=== PATIENT | female | born 1950 | race Caucasian/White ===

== ENCOUNTER → 2017-04-17 | Outpatient (CLI) | payer OTHER ==
[~2017-04-17] MED LIST: ACIPHEX20 MG PO; ALAVERT10 MG PO; ALENDRONATE SOD70 M1 PO; ALLERCLEAR10 MG PO; ASPIRIN81 M2 PO; BYSTOLIC10 MG PO; CALCIUM + D PO; CHANTIX PO; COMBIVENT INH14.7 GM INH; COMBIVENT U/D3 ML INH; COREG6.25 MG PO; DULERA 200 MCG/13 GM IH; ELIQUIS5 MG PO; EVISTA60 M1 PO; EVISTA60 MG PO; EYE DROP TEARS15 ML OP; K-DUR20 ME2 PO; LATANOPROST2.5 ML OP; LEVAQUIN750 M1 PO; NEXIUM PO; OMEPRAZOLE40 M1 PO; OYSTER CALCIUM500 MG PO; PAROXETINE HCL20 M1 PO; PAXIL PO; PREVACID PO; PRILOSEC20 MG PO; VITAL-D RX TABL1 TAB PO; VITAMIN D 22000 UNIT PO
--- NOTE | ~2017-04-17 | MY29 ---
[facility] A Service of [facility] & [facility] RADIOLOGY TEXT RESULTS PATIENT: LOPEZ CONDON LOCATION: [facility] : 54 UNIT #: [id number] AGE: [address]: VINNIE HURT MD SEX: F ORDER DR: [id number] [facility] [address] [place], [place] [address] [id number] O MR#: [id number] Acc #: [id number] NAME: LOPEZ CONDON : 1950 SEX: F STUDY DATE/TIME: 04/17/2017 10:08 UNIT: [facility] ROOM: STUDY DESCRIPTION: MY RAJWINDER SCREENING W/ CAD BILAT Attending Physician: Vinnie Hurt M.D. Referring Physician: Vinnie Hurt M.D. Ordering Physician: Vinnie Hurt M.D. Primary Care Physician: Vinnie Hurt M.D. MEDICAL IMAGING REPORT This report is preliminary unless electronic signature is present EXAM Digital screening mammograms 04/17/2017. [facility] HISTORY 67-year-old woman. Previous right mastectomy age 51. Personal and family history, aunt. Annual screen. COMPARISON Mammograms date to 03/20/2006 with most recent 03/30/2014. FINDINGS Digital imaging of each breast was completed utilizing screening protocol. Review includes FDA-approved CAD device. Breast size asymmetry is again noted. Post lumpectomy stellate scar located central right breast is stable. Postradiation skin thickening is noted and stable. Breast parenchyma is heterogeneous and partially fatty replaced. I see no suspicious mass. There are no interval occurring microcalcifications and no suspicious architectural deformity. IMPRESSION Negative stable mammogram. Post lumpectomy/radiation findings. Stable right breast. Annual screening recommended. Patients over the age of 40 are entered into a reminder system with target due date for the next mammogram. BIRADS: 1 Negative Dictated by... Shashank Mathias M.D. THIS IS AN ELECTRONICALLY VERIFIED REPORT Shashank Mathias M.D. at 04/17/2017 2:35 PM [address]S. [facility] A Service of [facility] RADIOLOGY TEXT RESULTS PATIENT: LOPEZ CONDON LOCATION: [facility] : 54 UNIT #: [id number] AGE: [address]: VINNIE HURT MD SEX: F ORDER DR: Escobar TD: 04/17/2017 14:10 JOB #: [id number] MEDICAL IMAGING REPORT Page 1 of 1 COPY
== END | disposition home or self-care (01) ==
LOC: CWCC 09:26
DX: Z12.31 Encounter for screening mammogram for malignant neoplasm of breast (principal); Z85.3 Personal history of malignant neoplasm of breast; Z80.3 Family history of malignant neoplasm of breast; Z98.890 Other specified postprocedural states
CPT/HCPCS: G0202